=== PATIENT | female | born 1950 | race Caucasian/White ===

== ENCOUNTER 2017-08-12 10:23 | Emergency (ER) | payer MEDICARE ==
[~2017-08-12] VITALS: Ht 162.6 cm; Wt 81.7 kg
[2017-08-12] MEDS ORDERED: Zovirax800 MG PO (11:26)
== END 2017-08-12 12:11 | disposition home or self-care (01) ==
LOC: ER 10:23
DX: B02.30 Zoster ocular disease, unspecified (principal); Z88.2 Allergy status to sulfonamides; Z79.899 Other long term (current) drug therapy
CPT/HCPCS: 99283

== ENCOUNTER → 2022-05-24 | Outpatient (CLI) | payer MEDICARE ==
[~2022-05-24] MED LIST: Zovirax800 MG PO
[2022-05-24 11:50] LABS: Source, Urine Clean Catch
[2022-05-24 18:56] LABS: Appearance, Urine Clear (Clear); Bilirubin, Urine Neg (Neg); Blood, Urine Neg (Neg); Glucose Qualitative, Urine Neg (Neg); Ketones, Urine Neg (Neg); Leukocyte Esterase, Urine Neg (Neg); Nitrite, Urine Neg (Neg); Protein, Urine Neg (Neg); Urobilinogen, Urine NORM (Normal)
[2022-05-24 18:59] LABS: Color, Urine Pale Yellow (P-Yellow)
== END | disposition home or self-care (01) ==
LOC: LAB SHORT 11:48 → LAB 11:48
PROVIDERS: Internal Medicine
DX: R30.0 Dysuria (principal)
CPT/HCPCS: 81003